=== PATIENT | male | born 1990 | race Caucasian/White ===

== ENCOUNTER 2023-09-20 08:40 | Inpatient (IN) | payer OTHER ==
[~2023-09-20] VITALS: Ht 175.3 cm; Wt 84.8 kg
[2023-09-20 08:53] VITALS: BP_SYST 138; PULSE 86; RESP 20; TEMP 98.3; O2SAT 96
[2023-09-20 10:10] LABS: BASOPHILS % (AUTO) 0.7 % (0.0-2.0); EOSINOPHILS # (AUTO) 0.4 K/uL (0.0-0.4); EOSINOPHILS % (AUTO) 5.2 % (0.0-4.0); HEMATOCRIT 41.8 % (36-54); HEMOGLOBIN 13.7 g/dL (14.0-18.0); LYMPHOCYTES # (AUTO) 1.9 K/uL (1.0-5.5); LYMPHOCYTES % (AUTO) 27.1 % (20.5-51.5); MEAN CORPUSCULAR HEMOGLOBIN 29 pg (27-31); MEAN CORPUSCULAR HGB CONC 33 % (32-36); MEAN CORPUSCULAR VOLUME 89 fL (79.0-98.0); MONOCYTES # (AUTO) 0.5 K/uL (0.0-1.0); MONOCYTES % (AUTO) 6.3 % (1.7-9.3); NEUTROPHILS # (AUTO) 4.4 K/uL (1.8-7.7); NEUTROPHILS % (AUTO) 60.7 % (40.0-70.0); PLATELET COUNT (AUTO) 248 K/uL (130-430); RED BLOOD CELL COUNT(AUTO) 4.67 MIL/uL (4.2-6.2); RED CELL DISTRIBUTION WIDTH 13.5 % (9.0-15.0); WHITE BLOOD COUNT (AUTO) 7.2 K/uL (4.8-10.8)
[2023-09-20 10:32] LABS: ERYTHROCYTE SEDIMENTATION RATE 58 MM/HR (0-15)
[2023-09-20 10:38] LABS: PROTHROMBIN TIME 10.4 SECS (9.5-12.5)
[2023-09-20 10:42] LABS: CALCIUM 9.6 mg/dL (8.4-11.0); CREATININE 0.83 mg/dL (0.55-1.30); POTASSIUM 3.5 mmol/L (3.5-5.1)
[2023-09-20 10:52] LABS: ALBUMIN 3.5 g/dL (3.4-4.8); BILIRUBIN,DIRECT 0.1 mg/dL (0.0-0.3); TOTAL BILIRUBIN 0.3 mg/dL (0.0-1.0); TOTAL PROTEIN, SERUM 7.3 g/dL (6.4-8.3)
[2023-09-20 13:28] VITALS: BP_SYST 120; PULSE 76; RESP 18; TEMP 97.9; O2SAT 99
[2023-09-20 13:30] VITALS: BP_SYST 120; PULSE 76; RESP 18; TEMP 97.9; O2SAT 100
[2023-09-20 16:00] VITALS: BP_SYST 123; PULSE 74; RESP 18; TEMP 97.9; O2SAT 100
[2023-09-20 20:00] VITALS: BP_SYST 120; PULSE 80; RESP 17; TEMP 97.5; O2SAT 97
[2023-09-20 22:58] VITALS: O2SAT 97
[2023-09-21] VITALS: BP_SYST 110; PULSE 66; RESP 17; TEMP 98.2; O2SAT 97
[2023-09-21 04:46] LABS: BILIRUBIN,URINE NEGATIVE (NEGATIVE); BLOOD, URINE NEGATIVE (NEGATIVE); CLARITY/URINE CLEAR (CLEAR); COLOR,URINE YELLOW (YELLOW); GLUCOSE,URINE NEGATIVE (NEGATIVE); KETONES,URINE NEGATIVE (NEGATIVE); LEUKOCYTE ESTERASE ,URINE NEGATIVE (NEGATIVE); NITRITE, URINE NEGATIVE (NEGATIVE); PROTEIN URINE NEGATIVE (NEGATIVE); UROBILINOGEN,URINE 0.2 (0.2-1.0)
[2023-09-21 08:00] VITALS: BP_SYST 125; PULSE 70; RESP 16; TEMP 97.8; O2SAT 98
[2023-09-21] MEDS ORDERED: KETOROLAC TROMETHAMINE 30 MG VIAL ONE (11:17)
[2023-09-21] MEDS ORDERED: PROPOFOL 200MG/ 20ML VIAL (DIPRIVAN) IV ONE (11:17)
[2023-09-21] MEDS ORDERED: DEXAMETHASONE SOD PHOSPHATE 4 MG/ML VIAL ONE (11:17)
[2023-09-21] MEDS ORDERED: ONDANSETRON HCL 4 MG/2 ML VIAL ONE (11:17)
[2023-09-21] MEDS ORDERED: NS 1000 ML IV.SOLN IV ONE (11:17)
[2023-09-21] MEDS ORDERED: VANCOMYCIN HCL 1000 MG/VIAL IV ONE (11:17)
[2023-09-21] MEDS ORDERED: SEVOFLURANE 15 MIN GAS INH ONE (11:17)
[2023-09-21] MEDS ORDERED: BUPIVACAINE /PF 0.5% 30 ML VIAL ONE (11:17)
[2023-09-21] MEDS ORDERED: NS IRRIG SOLN 1000 ML IR ONE (11:17)
[2023-09-21] MEDS ORDERED: MIDAZOLAM HCL/PF 2 MG/2 ML SYRINGE ONE (11:17)
[2023-09-21] MEDS ORDERED: fentaNYL CITRATE/PF 100 MCG/2 ML AMP ONE (11:17)
[2023-09-21] MEDS ORDERED: METOCLOPRAMIDE HCL 10 MG/2 ML VIAL IVP PRN (12:15)
[2023-09-21] MEDS ORDERED: HYDROmorphone 1 MG/ML INJ. CARTRIDGE IVP PRN ×2 (12:15)
[2023-09-21] MEDS ORDERED: MEPERIDINE HCL/PF 25 MG/ML DISP.SYRIN IVP PRN (12:15)
[2023-09-21] MEDS ORDERED: MIDAZOLAM HCL 2 MG/2 ML VIAL (VERSED) IVP PRN (12:15)
[2023-09-21] MEDS: LR 1,000 ML IV SCH ×2 (12:15→17:12)
[2023-09-21] MEDS: HYDROmorphone 2 MG/ML VIAL ONE ×3 (13:05→14:22)
[2023-09-21 14:00] VITALS: BP_SYST 131; PULSE 83; RESP 18; TEMP 97.7; O2SAT 93
[2023-09-21 16:00] VITALS: BP_SYST 118; PULSE 82; RESP 18; TEMP 97.9; O2SAT 93
[2023-09-21] MEDS: VANCOMYCIN HCL 1,250 MG in NS 250 ML IV SCH ×2 (17:38→23:56)
[2023-09-21] MEDS ORDERED: NALOXONE HCL 0.4 MG/ML AMP (NARCAN) IVP PRN ×2 (19:30)
[2023-09-21] MEDS ORDERED: ACETAMINOPHEN 325 MG TABLET PO PRN (19:30)
[2023-09-21] MEDS ORDERED: ONDANSETRON HCL 4 MG/2 ML VIAL IM PRN (19:30)
[2023-09-21 20:00] VITALS: BP_SYST 126; PULSE 87; RESP 17; TEMP 97.7; O2SAT 96
[2023-09-21] MEDS: HYDROcodone/ACETAMIN 5-325 MG TAB (NORCO/ VICODIN) PO PRN (22:09)
[2023-09-21 23:34] VITALS: O2SAT 96
[2023-09-22] VITALS: BP_SYST 121; PULSE 85; RESP 18; TEMP 98; O2SAT 96
[2023-09-22] MEDS: VANCOMYCIN HCL 1,250 MG in NS 250 ML IV SCH ×2 (09:11→16:02)
[2023-09-22] MEDS: HYDROcodone/ACETAMIN 5-325 MG TAB (NORCO/ VICODIN) PO PRN ×2 (09:26→22:00)
[2023-09-22 10:21] VITALS: BP_SYST 128; PULSE 77; RESP 18; TEMP 98.2; O2SAT 97
[2023-09-22 10:23] VITALS: O2SAT 97
[2023-09-22 12:30] VITALS: BP_SYST 122; PULSE 76; RESP 18; TEMP 97.6; O2SAT 98
[2023-09-22 14:03] LABS: PROTHROMBIN TIME 10.7 SECS (9.5-12.5)
[2023-09-22 20:00] VITALS: BP_SYST 115; PULSE 74; RESP 18; TEMP 97.1; O2SAT 97
[2023-09-22] MEDS: CEFEPIME 2 GM in D5W 100 ML IV SCH (21:54)
[2023-09-22 23:07] VITALS: O2SAT 98
[2023-09-23] MEDS: HYDROcodone/ACETAMIN 5-325 MG TAB (NORCO/ VICODIN) PO PRN ×2 (01:29→08:42)
[2023-09-23 02:14] VITALS: BP_SYST 106; PULSE 70; RESP 18; TEMP 98.1; O2SAT 95
[2023-09-23 06:01] LABS: BASOPHILS # (AUTO) 0.1 K/uL (0.0-0.2); BASOPHILS % (AUTO) 0.8 % (0.0-2.0); EOSINOPHILS # (AUTO) 0.4 K/uL (0.0-0.4); EOSINOPHILS % (AUTO) 5.4 % (0.0-4.0); HEMATOCRIT 38.5 % (36-54); HEMOGLOBIN 12.5 g/dL (14.0-18.0); LYMPHOCYTES # (AUTO) 2.6 K/uL (1.0-5.5); LYMPHOCYTES % (AUTO) 33.9 % (20.5-51.5); MEAN CORPUSCULAR HEMOGLOBIN 29 pg (27-31); MEAN CORPUSCULAR HGB CONC 32 % (32-36); MEAN CORPUSCULAR VOLUME 90 fL (79.0-98.0); MONOCYTES # (AUTO) 0.5 K/uL (0.0-1.0); MONOCYTES % (AUTO) 6.6 % (1.7-9.3); NEUTROPHILS # (AUTO) 4.1 K/uL (1.8-7.7); NEUTROPHILS % (AUTO) 53.3 % (40.0-70.0); PLATELET COUNT (AUTO) 218 K/uL (130-430); RED BLOOD CELL COUNT(AUTO) 4.28 MIL/uL (4.2-6.2); RED CELL DISTRIBUTION WIDTH 13.6 % (9.0-15.0); WHITE BLOOD COUNT (AUTO) 7.7 K/uL (4.8-10.8)
[2023-09-23 06:17] LABS: ERYTHROCYTE SEDIMENTATION RATE 38 MM/HR (0-15)
[2023-09-23 06:34] LABS: CALCIUM 9.3 mg/dL (8.4-11.0); CREATININE 0.78 mg/dL (0.55-1.30); POTASSIUM 3.8 mmol/L (3.5-5.1); TOTAL BILIRUBIN 0.2 mg/dL (0.0-1.0); TOTAL PROTEIN, SERUM 6.4 g/dL (6.4-8.3)
[2023-09-23] MEDS: VANCOMYCIN HCL 1,250 MG in NS 250 ML IV SCH ×3 (08:04)
[2023-09-23 08:30] VITALS: BP_SYST 141; PULSE 78; RESP 18; TEMP 97.4; O2SAT 97
[2023-09-23] MEDS: CEFEPIME 2 GM in D5W 100 ML IV SCH (09:48)
[2023-09-23 14:09] VITALS: BP_SYST 141; PULSE 78; RESP 18; TEMP 97.4; O2SAT 97
[2023-09-23] MEDS ORDERED: VANCOMYCIN HCL 1,000 MG in NS 250 ML IV SCH (16:00)
== END 2023-09-23 15:30 | disposition home or self-care (01) | DRG 496 ==
LOC: SED 08:40 → SMU 11:13
PROVIDERS: ADMIT Internal Medicine; ATTEND Internal Medicine
PROC: 0PBL0ZZ Excision of Left Ulna, Open Approach (ICD-10-PCS; 2023-09-21)
PROC: 0PPL04Z Removal of Internal Fixation Device from Left Ulna, Open Approach (ICD-10-PCS; principal; 2023-09-21 11:21)
DX: T84.59XA Infection and inflammatory reaction due to other internal joint prosthesis, initial encounter (principal); E87.1 Hypo-osmolality and hyponatremia; M86.8X3 Other osteomyelitis, forearm; Y83.8 Other surgical procedures as the cause of abnormal reaction of the patient, or of later complication, without mention of misadventure at the time of the procedure; Y92.89 Other specified places as the place of occurrence of the external cause
CPT/HCPCS: 36415; 71045; 73090; 76000; 80048; 80053; 80076; 80202; 81001; 81003; 85025; 85610-TC; 85651-TC; 85730-TC; 86886; 86900; 86901; 87040; 87070; 87070-TC; 87075-TC; 87081; 88300; 99285; J0692; J0696; J1100; J1170; J1885; J2405; J2704; J3010; J3370; J3465; J3490; J7030; J7050; J7060